=== PATIENT | female | born 1975 | race Caucasian/White ===

== ENCOUNTER 2015-12-27 09:18 | Outpatient (RCR) | payer BC ==
[~2015-12-27] VITALS: Ht 167.6 cm; Wt 63.5 kg
[~2015-12-27 09:18] MED LIST: COSYNTROPIN 0.25 MG/ML (CORTROSYN) VIAL IM SCH
--- NOTE | 2015-12-27 09:31 | NUR ---
injection given at 0932, return to lab at 1032, pt given instructions as to return to lab, lab notified
[2015-12-27 09:33] VITALS: BP 113/70
== END 2016-03-26 | disposition home or self-care (01) ==
PROVIDERS: ATTEND Family Medicine
DX: I95.89 Other hypotension (principal)
CPT/HCPCS: 36415; 82533; 96372; J0834